=== PATIENT | female | born 1950 | race Hispanic/Latino ===

== ENCOUNTER → 2017-07-18 | Outpatient (CLI) | payer OTHER ==
[~2017-07-18] MED LIST: AMLO5TAB2 PO; ATOR10TA PO
== END | disposition home or self-care (01) ==
LOC: RAH 10:43
PROVIDERS: ATTEND Internal Medicine Gastroenterology
DX: R11.2 Nausea with vomiting, unspecified (principal); R14.0 Abdominal distension (gaseous)
CPT/HCPCS: 78264; A9540; A9541

== ENCOUNTER → 2018-09-24 | Outpatient (CLI) | payer OTHER ==
[~2018-09-24] MED LIST changes: -AMLO5TAB2 PO; +AMLO5TAB9 PO; +IOHEXOL 350 MG/ML 100ML INFUS..BTL IV ONE
== END | disposition home or self-care (01) ==
LOC: RAH 08:25
PROVIDERS: ATTEND Family Medicine
DX: G31.9 Degenerative disease of nervous system, unspecified (principal); J34.2 Deviated nasal septum; Z86.73 Personal history of transient ischemic attack (TIA), and cerebral infarction without residual deficits
CPT/HCPCS: 70470; 70488; Q9967

== ENCOUNTER → 2022-01-31 | Outpatient (CLI) | payer OTHER ==
[~2022-01-31] MED LIST changes: +AMLO-257 PO; -AMLO5TAB9 PO; -IOHEXOL 350 MG/ML 100ML INFUS..BTL IV ONE
== END | disposition home or self-care (01) ==
LOC: RAH 09:50
PROVIDERS: ATTEND Internal Medicine Gastroenterology
DX: R10.84 Generalized abdominal pain (principal); R14.0 Abdominal distension (gaseous)
CPT/HCPCS: 78264; A9541

== ENCOUNTER → 2023-09-10 | Outpatient (CLI) | payer OTHER | END | disposition home or self-care (01) | LOC: RAH 09:44 | PROVIDERS: ATTEND Family Medicine | DX: R10.2 Pelvic and perineal pain (principal); Z90.710 Acquired absence of both cervix and uterus | CPT/HCPCS: 76856 ==

== ENCOUNTER 2024-08-30 12:18 | Emergency (ER) | payer OTHER ==
[~2024-08-30] VITALS: Ht 162.6 cm; Wt 72.6 kg
--- NOTE | 2024-08-30 12:30 | ERN ---
ED Note History of Present Illness Stated Complaint: SIDE PAIN Chief Complaint: Hip Pain/Injury Time Seen by MD: 12:19 Dictation: PATIENT IS A 74-YEAR-OLD FEMALE HERE WITH COMPLAINTS OF RIGHT ANTEROLATERAL HIP AND PELVIC PAIN THAT MAKES IT HARDER TO WALK AND TO SIT FOR THE LAST SEVERAL MONTHS. SHE STATES SHE HAS BEEN HER DOCTOR MULTIPLE TIMES IN HIS HAD ULTRASOUNDS OF HER ABDOMEN MRIS DONE AND NO TREATMENT HAS BEEN SUCCESSFUL IN TREATING THE PAIN. SHE STATES SHE SAW HER DOCTOR LAST WEEK WHO GAVE HER MEDICATIONS FOR INFLAMMATION. CURRENTLY STANDING IN THE TRIAGE ROOM AND IN TEARS STATES THAT IS DIFFICULT TO SIT DOWN. Allergies: Coded Allergies: No Known Drug Allergies (Unverified Allergy, Unknown, 10/27/15) Home Meds Reported Medications Amlodipine Besylate (Amlodipine Besylate) 5 Mg Tablet, 5 MG PO DAILY, TAB 06/18/17 Atorvastatin Calcium (Lipitor) 10 Mg Tablet, 10 MG PO PM, TAB 10/27/15 Past Medical History History: Not Applicable RN Note Reviewed/Agreed w/PFSH: Yes Review of System Dictation CONSTITUTIONAL: NEGATIVE EXCEPT FOR HPI HEAD/FACE: NEGATIVE EXCEPT FOR HPI EENT: NEGATIVE EXCEPT FOR HPI RESPIRATORY: NEGATIVE EXCEPT FOR HPI GASTROINTESTINAL/ABDOMINAL: NEGATIVE EXCEPT FOR HPI GENITOURINARY: NEGATIVE EXCEPT FOR HPI MUSCULOSKELETAL: NEGATIVE EXCEPT FOR HPI CHRONIC RIGHT LATERAL HIP AND ANTERIOR PELVIC PAIN FOR MONTHS INTEGUMENTARY: NEGATIVE EXCEPT FOR HPI NEUROLOGICAL/PSYCH: NEGATIVE EXCEPT FOR HPI HEMATOLOGIC/LYMPHATIC: NEGATIVE EXCEPT FOR HPI ALL SYSTEMS NEGATIVE, EXCEPT NOTED ABOVE. 13 POINT REVIEW OF SYSTEMS ASSESSED AND ALL NEGATIVE EXCEPT FOR ABOVE. Initial Vital Sign VS Vital Signs Date Time Temp Pulse Resp B/P (MAP) Pulse Ox O2 Delivery O2 Flow Rate FiO2 08/30/24 12:23 97.9 94 16 225/119 97 Room Air Physical Exam Dictation VITAL SIGNS REVIEWED GENERAL APPEARANCE: ALERT, ORIENTED X 3, SEVERE ACUTE DISTRESS, WELL DEVELOPED, NOURISHED. HEAD AND FACE: NON-TRAUMATIC. EYES: PERRL, PINK CONJUNCTIVAS, EYELID NO TRAUMA, ANTERIOR CHAMBER WITH ARCUS SENILIS. EARS: PINNAS INTACT AND NO SIGNS OF TRAUMA OR ERYTHEMA EAR CANALS CLEAR AND NO DISCHARGE TM NO ERYTHEMA NOSE: NO DISCHARGE, NO BLEEDING. OROPHARYNX: MOUTH NORMAL, TONGUE PINK, PHARYNX CLEAR,NO ERYTHEMA, TONSILS NO EXUDATES, NO ABSCESSES NOTED, MUCOUS MEMBRANE MOIST NECK: SUPPLE, NON-TENDER, NO THYROMEGALY, NO MASSES, NO JVD, NO BRUITS BREAST:DEFERRED CHEST:NO TENDERNESS, NO CREPITUS, NO PARADOXICAL MOVEMENT, NO RETRACTIONS LUNGS:CLEAR, WELL-VENTILATED, SYMMETRIC, NO RALES, NO WHEEZING, NO RHONCHI, NO STRIDOR, GOOD BREATH SOUNDS BILATERALLY HEART: REGULAR RATE, REGULAR RHYTHM, NO MURMUR, NO GALLOPS VASCULAR: NO PERIPHERAL EDEMA, ABDOMEN: SOFT, POSITIVE BOWEL SOUNDS, NONDISTENDED, NO GUARDING, NONTENDER, NO REBOUND, NO MASSES NO HEPATOMEGALY, NO SPLENOMEGALY, NO IBARRA'S SIGN, NO HERNIAS. RECTAL: DEFERRED GENITAL: DEFERRED NEUROLOGICAL: NORMAL SPEECH, MOTOR FUNCTION INTACT, SENSORY FUNCTION INTACT MUSCULOSKELETAL: NECK NONTENDER, FULL RANGE OF MOTION, BACK NONTENDER, FULL RANGE OF MOTION, EXTREMITIES: TENDERNESS WITH DECREASED RANGE OF MOTION TO RIGHT HIP. ALSO RIGHT ANTERIOR PELVIC PAIN. NO SHORTENING OR ROTATION OF LEFT LEG SKIN: COLOR PINK, DRY, NO TURGOR, NO RASH, NO LACERATIONS, NO ABRASIONS, NO CONTUSIONS. LYMPHATIC: DEFERRED Results (Laboratory/Radiology) Laboratory/Radiology REASON: PELVIC AND RIGHT LATERAL HIP AND ANTERIOR PELVIC PAIN NON TRAUMA ORDERING PHYSICIAN: ELAINE AMATO NP PROCEDURE: PELVIS - PELVIS 1-2VWS PELVIS RADIOGRAPH (1 VIEW) INDICATION: Pain COMPARISON: None FINDINGS: No evidence for acute fracture or dislocation. Sacroiliac joints appear normal. Both hip joints appear normal. IMPRESSION: No radiographic evidence for fracture or dislocation. RIGHT HIP RADIOGRAPHS - 2 VIEWS INDICATION: Pain COMPARISON: None FINDINGS: AP and abduction views. No acute fracture or subluxation identified. Femoral head is well formed without osteochondral erosion or radiographic evidence for avascular necrosis. No radiopaque foreign body noted. IMPRESSION: No evidence for fracture or dislocation. RIGHT HIP RADIOGRAPHS - 2 VIEWS INDICATION: Pain COMPARISON: None FINDINGS: AP and abduction views. No acute fracture or subluxation identified. Femoral head is well formed without osteochondral erosion or radiographic evidence for avascular necrosis. No radiopaque foreign body noted. IMPRESSION: No evidence for fracture or dislocation. Labs Reviewed?: Yes ED Course ED Course Orders Procedure Category Date Status Time Pelvis 1-2vws RAD 08/30/24 Resulted 12:26 Hip Unilat 2-3vw Right RAD 08/30/24 Resulted 12:26 Saline Lock Iv CPOE 08/30/24 Transmitted 12:26 Dexamethasone 4mg/Ml PHA 08/30/24 Complete 1ml Vial (Dexametha 12:30 Morphine 2mg Syg PHA 08/30/24 Complete (Morphine 2mg Syg) 12:30 Ondansetron 4mg Inj PHA 08/30/24 Complete (Zofran 4mg Inj) 12:30 Ketorolac PHA 08/30/24 Complete Tromethamine 30mg/Ml 12:30 Current Medications Medications (Trade) Dose Ordered Sig/Denny Route PRN Reason Start Time Stop Time Status Last Admin Dose Admin Dexamethasone Sodium Phosphate (dexaMETHasone 4MG/ML 1ML VIAL) 8 mg ONCE ONCE IVP 08/30/24 12:30 08/30/24 12:34 DC 08/30/24 13:05 Ketorolac Tromethamine (toRADol) 30 mg ONCE ONCE IVP 08/30/24 12:30 08/30/24 12:34 DC 08/30/24 13:04 Morphine Sulfate (morPHINE 2MG SYG) 2 mg ONCE ONCE IVP 08/30/24 12:30 08/30/24 12:34 DC 08/30/24 13:06 Ondansetron HCl (zoFRAN 4MG INJ) 4 mg ONCE ONCE IVP 08/30/24 12:30 08/30/24 12:34 DC 08/30/24 13:04 Vital Signs Date Time Temp Pulse Resp B/P (MAP) Pulse Ox O2 Delivery O2 Flow Rate FiO2 08/30/24 12:23 97.9 94 16 225/119 97 Room Air /1325 PATIENT STATES PAIN IS MARKEDLY IMPROVED AFTER TREATMENT WITH MEDICATIONS. SHE IS NOW SITTING AND TALKING WITH HER SON WE WILL BE DISCHARGED HOME WITH CHRONIC RIGHT HIP AND PELVIC PAIN DISCHARGED HOME WITH PREDNISONE AND TYLENOL NO. 3, WE WILL BE REFERRED TO DR. URENA ORTHOPEDIC SURGEON. Medical Decision Making MDM MEDICAL DISCHARGE MAKING BASED ON X-RAYS OF HIP AND PELVIS. PAIN WAS MANAGED DISCHARGED HOME WITH DIAGNOSIS OF CHRONIC RIGHT HIP PAIN WE WILL BE SENT HOME WITH PREDNISONE AND TYLENOL NO.3 REFERRED TO ORTHOPEDIC SURGERY DX & DISP Disposition: Discharge Departure Impression: Primary Impression: Chronic pain of right hip Additional Impression: Hypertension Condition: Stable Scripts Prednisone (Prednisone) 20 Mg Tablet 1 TAB PO AD for 6 Days, #14 TAB 0 Refills TAKE 1 TAB BY MOUTH THREE TIMES PER DAY X3 DAYS, THEN TAKE 1 TAB BY MOUTH TWICE A DAY X2 DAYS, THEN TAKE 1 TAB BY MOUTH ONCE A DAY X1 DAY. Prov: ELAINE AAMTO NP 08/30/24 Omeprazole (Omeprazole) 40 Mg Capsule.dr 1 CAP PO DAILY for 30 Days, #30 CAP 0 Refills Prov: ELAINE AMATO NP 08/30/24 Acetaminophen with Codeine (Acetaminophen-Cod #3 Tablet) 300 Mg-30 Mg Tablet 1 TAB PO Q4H PRN for MODERATE TO SEVERE PAIN, #12 TAB 0 Refills Prov: ELAINE AMATO NP 08/30/24 Additional Instructions: Follow-up with primary care provider in 1 to 2 days. Take medications as directed here in the emergency room. Okay to continue home medications unless otherwise discussed during your visit in the emergency room today. Return to your nearest emergency room if symptoms worsen or if there is no improvement. Call 911 if you need immediate assistance. Take Tylenol or Motrin over-the- counter as needed and if no contraindications are present. Increase oral hydration. A wound culture or urine culture was ordered here in the emergency room department please follow-up with primary care provider and advise them to get repeat ports from our facility. If you had any Manuel wrap/splints that were applied here, please do not remove them until you see your primary care or specialty. Take prednisone as directed with food until gone. Take Tylenol No. 3 For severe pain suggest warm compresses to right hip three to 4 times a day for pain please call orthopedic surgeon for an appointment in the next 1-2 days. Referrals: ANNA MONROE DO (PCP) ED ALVARADO MD Time of Disposition: 13:25 I have reviewed the case, and I agree with, Diagnosis and Plan ELAINE AMATO NP Aug 30, 2024 12:30
[2024-08-30] MEDS: ondanSETRON 4MG INJ IVP ONE (13:04)
[2024-08-30] MEDS: ketOROlac 30MG VIAL (30MG/ML) IVP ONE (13:04)
[2024-08-30] MEDS: dexaMETHasone SOD PHOSPHATE 4 MG/ML 1ML VIAL IVP ONE (13:05)
[2024-08-30] MEDS: morPHINE 2 MG SYG IVP ONE (13:06)
--- NOTE | 2024-08-30 13:09 | HMCIMG ---
PELVIS RADIOGRAPH (1 VIEW) INDICATION: Pain COMPARISON: None FINDINGS: No evidence for acute fracture or dislocation. Sacroiliac joints appear normal. Both hip joints appear normal. IMPRESSION: No radiographic evidence for fracture or dislocation.
--- NOTE | 2024-08-30 13:09 | HMCIMG ---
RIGHT HIP RADIOGRAPHS - 2 VIEWS INDICATION: Pain COMPARISON: None FINDINGS: AP and abduction views. No acute fracture or subluxation identified. Femoral head is well formed without osteochondral erosion or radiographic evidence for avascular necrosis. No radiopaque foreign body noted. IMPRESSION: No evidence for fracture or dislocation.
[2024-08-30] MEDS ORDERED: OMEP40CA21 PO (13:27)
[2024-08-30] MEDS ORDERED: ACET-2079 PO (13:27)
[2024-08-30] MEDS ORDERED: PRED20TA3 PO (13:27)
[2024-08-30 13:34] VITALS: BP 165/92; PULSE 88; RESP 18; TEMP 97.9; O2SAT 97
== END 2024-08-30 13:35 | disposition home or self-care (01) ==
LOC: EDH 12:18
DX: G89.29 Other chronic pain (principal); M25.551 Pain in right hip; I10 Essential (primary) hypertension; Z79.899 Other long term (current) drug therapy
CPT/HCPCS: 99284; 96374; 96375; 72170; 73502; J1100; J1885; J2270; J2405

== ENCOUNTER → 2024-09-17 | Outpatient (CLI) | payer OTHER ==
[~2024-09-17] MED LIST changes: +ACET-2079 PO; +OMEP40CA21 PO; +PRED20TA3 PO
--- NOTE | 2024-09-17 14:27 | HMCIMG ---
Pelvic transabdominal ultrasound -female Findings: The uterus is surgically absent. The ovaries are not visualized. No fluid collections or masses or free fluid are identified in the pelvis. Impression: Status post hysterectomy. Nonvisualization of the ovaries.
--- NOTE | 2024-09-17 14:28 | HMCIMG ---
Exam Type: US ABDOMINAL COMPLETE Clinical Information: PELVIC PAIN Comparison: None Findings: The liver shows normal echogenicity is otherwise unremarkable. Doppler evaluation shows patent portal and hepatic veins. The gallbladder is surgically absent. No bile duct dilatation is noted. The common bile duct measures 4 mm. The right kidney measures 11.3 x 5.1 cm. The left kidney measures 11.3 x 5.2 cm. The kidneys show no hydronephrosis or calculi, masses or other abnormalities. The pancreas is unremarkable. The spleen is unremarkable. The aorta and inferior vena cava show no significant abnormalities. IMPRESSION: Status post cholecystectomy. Otherwise unremarkable exam.
== END | disposition home or self-care (01) ==
LOC: RAH 08:10
PROVIDERS: ATTEND Internal Medicine
DX: R10.2 Pelvic and perineal pain (principal); Z90.49 Acquired absence of other specified parts of digestive tract; Z90.710 Acquired absence of both cervix and uterus
CPT/HCPCS: 76700; 76856